=== PATIENT | male | born 1990 | race African-American/Black ===

== ENCOUNTER 2017-12-28 02:42 | Emergency (ER) | payer SELFPAY ==
[2017-12-28] MEDS ORDERED: 0.9 % SODIUM CHLORIDE 1,000 ML BAG IV ONE (03:09)
[2017-12-28] MEDS ORDERED: ONDANSETRON HCL IV 4 MG/2 ML VIAL IVP ONE (03:09)
--- NOTE | 2017-12-28 03:09 | Emergency Department Record ---
History of Present Illness - General Chief complaint: Vomiting Stated complaint: VOMITING Time Seen by Provider: 12/28/17 03:01 Source: Patient Mode of Arrival: Ambulatory Limitations: No limitations - History of Present Illness Initial comments: 27 yo male presents with nausea and vomiting after eating a meal around midnight. He was not ill prior to that. He has a burning feeling in the epigastrium. He saw a little streak of blood in the vomit. No diarrhea. No history of back pain. No history of surgery on the abdomen. He has asthma that is stable. He does continue to smoke daily one pack. His asthma has been very stable recently. No history of GI ulcers or disease that he is aware. MD complaint: Nausea, Vomiting Onset/Timin -: Hour(s) Description of Vomiting: Blood-streaked Associated Abdominal Pain: Yes Severity: Moderate Severity scale (1-10): 6 Quality: Other Consistency: Intermittent Improves with: Rest Worsens with: Vomiting Context: Other Associated Symptoms: Nausea/vomiting - Related Data Home Medications Medication Instructions Recorded Confirmed Last Taken Albuterol Sulfate [Proair Hfa] 1 - 2 puff IH .EVERY 4-6 HOURS PRN 12/28/1712/2812/28/17 Previous Rx's Medication Instructions Recorded Ondansetron [Zofran Odt] 4 mg PO Q8H #15 tab.rapdis 12/28/17 Ranitidine HCl [Zantac] 150 mg PO BID #20 tablet 12/28/17 Allergies Allergy/AdvReac Type Severity Reaction Status Date / Time No Known Drug Allergies Allergy Verified 12/28/17 02:48 Travel Screening - Travel/Exposure Within Last 30 Days Have you traveled within the last 30 days?: No - Travel Symptoms Symptom Screening: Vomiting Review of Systems Constitutional: Denies: Chills, Fever, Malaise, Weakness Eyes: Denies: Eye discharge ENT: Denies: Congestion, Throat pain Respiratory: Denies: Cough, Dyspnea Cardiovascular: Denies: Chest pain, Palpitations, Syncope Endocrine: Denies: Fatigue Gastrointestinal: Reports: Abdominal pain (burning mid upper abdomen), Nausea, Vomiting. Denies: Diarrhea Genitourinary: Denies: Dysuria, Frequency Musculoskeletal: Denies: Arthralgia, Back pain, Myalgia, Neck pain Skin: Denies: Bruising, Change in color, Rash Neurological: Denies: Headache Psychiatric: Denies: Anxiety Hematological/Lymphatic: Denies: Easy bleeding, Easy bruising Past Medical History - SOCIAL HISTORY Smoking Status: Heavy tobacco smoker (>10/day) Alcohol Use: None Drug Use: Occasional Drug Use Detail:: Marijuana - RESPIRATORY Hx Respiratory Disorders: Yes Hx Asthma: Yes Hx Pneumonia: Yes - CARDIOVASCULAR Hx Cardio Disorders: No - NEURO Hx Neuro Disorders: No - GI Hx GI Disorders: No - Hx Genitourinary Disorders: No - ENDOCRINE Hx Endocrine Disorders: No - MUSCULOSKELETAL Hx Musculoskeletal Disorders: No - PSYCH Hx Psych Problems: No - HEMATOLOGY/ONCOLOGY Hx Hematology/Oncology Disorders: No Family Medical History Any Significant Family History?: No Family Hx Comment (NOT TO BE USED IN PLACE OF ITEMS BELOW): DENIES Physical Exam - General General Appearance: Alert, Oriented x3, Cooperative, No acute distress Limitations: No limitations - Head Head exam: Atraumatic, Normal inspection - Eye Eye exam: Normal appearance. negative: Conjunctival injection - ENT ENT exam: Normal exam Ear exam: Normal external inspection Nasal Exam: Normal inspection Mouth exam: Normal external inspection - Neck Neck exam: Normal inspection - Respiratory Respiratory exam: Normal lung sounds bilaterally, Other (clear lungs, non labored). negative: Respiratory distress, Wheezes - Cardiovascular Cardiovascular Exam: Regular rate, Normal rhythm, Normal heart sounds - GI/Abdominal GI/Abdominal exam: Soft, Tenderness (mild epigastric tenderness, very soft, no mass, no rebound or guarding). negative: Distended, Guarding, Rebound, Rigid - Rectal Rectal exam: Deferred - exam: Deferred - Extremities Extremities exam: Normal inspection - Back Back exam: Denies: CVA tenderness (R), CVA tenderness (L) - Neurological Neurological exam: Alert, Oriented X3 - Psychiatric Psychiatric exam: Normal affect, Normal mood - Skin Skin exam: Dry, Intact, Normal color, Warm Course Vital Signs 12/28/17 02:50 Temperature 97.6 F Pulse Rate 75 Respiratory 18 Rate Blood Pressure 133/64 Pulse Ox 99 - Reevaluation(s) Reevaluation #1: The labs were reviewed No acute changes on the CBC or CMP The Lipase is normal 12/28/17 03:40 12/28/17 04:02 The labs were reviewed with the patient He is feeling better with resolution of the nausea The epigastric burning is improved but not gone 12/28/17 04:24 No vomiting. No nausea. DC home on Zofran and Zantac We discussed home care, reasons to return and referral to the [facility] Medical Decision Making - Lab Data Result diagrams: 12/28/17 02:50 12/28/17 02:50 Disposition Disposition: Discharge Clinical Impression: Nausea and vomiting Qualifiers: Vomiting type: unspecified Vomiting Intractability: unspecified Qualified Code( s): R11.2 - Nausea with vomiting, unspecified Disposition: Home, Self-Care Condition: (1) Good Instructions: Acute Nausea and Vomiting (ED) Additional Instructions: Eat bland basic foods today You may take the Zofran if you have nausea Take the Zantac for the burning feeling in the abdomen Return to the ER if the vomiting returns, any fever or any new concerns Call the [facility] for a new family doctor Prescriptions: Ondansetron [Zofran Odt] 4 mg PO Q8H #15 tab.rapdis Ranitidine HCl [Zantac] 150 mg PO BID #20 tablet Referrals: SKY NUÑEZ [MEDICAL DOCTOR] - Forms: Patient Portal Access Time of Disposition: 04:27 Quality - Quality Measures Quality Measures: N/A - Blood Pressure Screening Does Patient Have Any of the Following: No Blood Pressure Classification: Normal BP Reading Systolic Measurement: 118 Diastolic Measurement: 67 Screening for High Blood Pressure: < Normal BP, F/U Not Required > [[id number]]
[2017-12-28 03:20] LABS: BASO % 0.2 % (0-6); EOS % 0.9 % (0-6); GRAN % 65.3 % (47-80); HEMATOCRIT 43.1 % (42.0-52.0); HEMOGLOBIN 14.3 gm/dl (14.0-18.0); LYMPH % 27.5 % (16-45); MEAN CELL VOLUME 82.4 fl (81-97); MEAN CORPUSCULAR HEMOGLOBIN 27.3 pg (27-33); MEAN CORPUSCULAR HGB CONC 33.2 g/dl (32-36); MEAN PLATELET VOLUME 8.7 fl (7.4-10.4); MONO % 6.1 % (0-9); PLATELET COUNT 325 K/uL (130-400); RED BLOOD COUNT 5.23 M/uL (4.40-5.70); RED CELL DISTRIBUTION WIDTH 13.3 % (11.5-14.5); WHITE BLOOD COUNT W/O DIFF 8.1 K/uL (4.2-12.2)
[2017-12-28 03:32] LABS: BLOOD UREA NITROGEN 16 mg/dL (6-20)
[2017-12-28 03:33] LABS: CREATININE 0.9 mg/dL (0.7-1.2); EST GLOMERULAR FILTRATION RATE > 60 mL/min; TOTAL PROTEIN 8.6 g/dL (6.6-8.7)
[2017-12-28 03:35] LABS: GLUCOSE,RANDOM 115 mg/dL (74-109)
[2017-12-28 03:38] LABS: ALB/GLOB RATIO 1.3 (1.1-1.8); ALBUMIN 4.9 g/dL (4.0-5.0); ALKALINE PHOSPHATASE 47 U/L (40-129); ALT/SGPT 18 U/L (<41); AST/SGOT 22 U/L (10.0-50.0); LIPASE 21 U/L (13-60)
[2017-12-28] MEDS ORDERED: MAGNESIUM HYDROXIDE/AL HYDROX 30 ML, LIDOCAINE VISC 2% 15ML 15 ML PO ONE ×2 (04:01)
[2017-12-28] MEDS ORDERED: ONDANSETRON 4 MG ODT TABLET SL ONE (04:23)
== END 2017-12-28 04:55 | disposition home or self-care (01) ==
LOC: ER 02:42
DX: R11.2 Nausea with vomiting, unspecified (principal); R10.13 Epigastric pain; F17.210 Nicotine dependence, cigarettes, uncomplicated
CPT/HCPCS: 99284 ×2; 96374; 83690; 85025; 80053; J2405; J7030